=== PATIENT | female | born 1950 | race Caucasian/White ===

== ENCOUNTER → 2017-06-18 | Day surgery (SDC) | payer MEDICARE, OTHER ==
[2017-06-17 13:34] VITALS: BMI 23.1
[~2017-06-18] MED LIST: FLU VACC TS2017-18 (>65YR) 0.5 ML SYRINGE IM ONE; Iopamidol-M 200 41% 20 ML VIAL ONE; Ondansetron ODT 4 MG TAB ONE
--- OUTSIDE RECORDS SUMMARY | 2017-06-18 06:48 | XMS | Clinical Summary ---
:1950 Author Organization [facility] Address [address] [place] [address] Phone Care Team Providers Name Role Phone , Primary Care Provider Unavailable Allergies Not on File Current Medications Not on file Active Problems Not on file Social History Tobacco Use Types Packs/Day Years Used Date Never Assessed Sex Assigned at Date Recorded Not on file Last Filed Vital Signs Not on file Plan of Treatment Not on file Results Not on filefrom Last 3 Months
[2017-06-18 07:16] VITALS: TEMP 97.4
--- NOTE | 2017-06-18 08:48 | RAD ---
LUMBAR SPINE 3 VIEWS: HISTORY: Low back pain, M54.1. COMPARISON: 06/06/17. FINDINGS/IMPRESSION: Lateral views include neutral, flexion, and extension positioning. Postoperative changes at the L4- 5 level are again demonstrated. Lucency surrounding the L4 pedicle screw is 0.4 mm. No abnormal tr anslational motion is apparent upon flexion or extension, although there is little range of motion. POS: [facility]
--- NOTE | 2017-06-18 10:16 | CT ---
CT LUMBAR SPINE WITH CONTRAST: CT LUMBAR MYELOGRAM: History: Lumbar radiculopathy. FINDINGS: There is posterior metallic fusion with right sided pedicle screws involving L4 and L5 with an inter vening vertical anne. The right L4 pedicle screw traverses the superior right pedicular cortex and re sides just cephalad to the superior endplate of L4 within the disc space. There is sclerosis and mul tifocal degenerative cyst formation involving the inferior L4 and superior L5 endplates. Disc space device is present. L5-S1: Moderate bilateral facet hypertrophy is present and there is a broad based disc bulge mildly effacing the ventral thecal sac. There is mild right foraminal narrowing. No high grade left frontal narrowing. L4-5: Broad based disc osteophyte complex present with mild narrowing of the central canal. Minimal narrowing of the bilateral neural foramina. There is prominent degenerative facet hypertrophy bilate rally. L3-4: Mild narrowing of the central canal on the basis of broad based disc osteophyte complex and bi lateral facet hypertrophy, moderate in degree. There is mild bilateral neural foraminal narrowing. L2-3: Mild retrolisthesis with disc osteophyte complex results in mild narrowing of the central brianna l. There is mild bilateral neural foraminal narrowing. L1-2: No significant compromise of central canal or neural foramina. Incidental note of scattered vascular disease. There is colonic diverticulosis. IMPRESSION: Post-operative lumbar spine with multilevel degenerative change as above. POS: [facility]
--- NOTE | 2017-06-18 10:25 | RAD ---
LUMBAR SPINE MYELOGRAM INDICATION: Lumbar radiculopathy. FLUORO DATA: 0.2 minutes, 12.4 mGy*cm\S\2. PROCEDURE: After informed consent had been obtained, the patient was escorted to the interventional suite and p laced on the procedural table. [employer] imaging was performed. The patient was placed into a prone po sition. Skin on the low back was then prepped and draped in the standard sterile fashion and topica l and regional soft tissue anesthesia was achieved with 1% lidocaine and sodium bicarbonate. L3-4 left interlaminar approach was selected, and a 22 gauge needle was uneventfully advanced into the th ecal sac with clear color CSF. Subsequently, 10 cc Isovue M200 was instilled into the thecal sac un manuel real time fluoroscopy. Appropriate opacification of thecal sac demonstrated with imaging stored for confirmation. The needle was then removed from the patient. The patient tolerated the procedu re well and was then transferred to CT to undergo subsequent myelogram. Reference separate report f or full details. IMPRESSION: Technically successful lumbar myelogram as detailed above. POS: [facility]
== END ==
LOC: RAD 06:45
PROVIDERS: ATTEND Neurological Surgery
DX: M54.16 Radiculopathy, lumbar region (principal); Z88.0 Allergy status to penicillin; Z91.040 Latex allergy status; Z98.1 Arthrodesis status
CPT/HCPCS: 62304; 72100; 72132; Q0162